=== PATIENT | male | born 1995 | race Caucasian/White ===

== ENCOUNTER 2023-06-26 02:12 | Emergency (ER) | payer MEDICAID ==
[~2023-06-26] VITALS: Ht 170.2 cm; Wt 90.9 kg
[2023-06-26 02:22] VITALS: TEMP 98
[2023-06-26 03:15] LABS: PH,URINE DRUG SCREEN 5.5 (5.0-8.0)
[2023-06-26 03:20] LABS: AMPHET/METH SCREEN,URINE NEGATIVE (NEGATIVE); BARBITURATE SCREEN, URINE NEGATIVE (NEGATIVE); BENZODIAZEPINES SCREEN,URINE NEGATIVE (NEGATIVE); CANNABINOID SCREEN,URINE NEGATIVE (NEGATIVE); COCAINE SCREEN,URINE NEGATIVE (NEGATIVE); METHADONE SCREEN, URINE NEGATIVE (NEGATIVE); OPIATE SCREEN,URINE NEGATIVE (NEGATIVE); PHENCYCLIDINE SCREEN,URINE NEGATIVE (NEGATIVE)
[2023-06-26] MEDS ORDERED: HALOPERIDOL 5 MG TABLET PO ONE (03:30)
[2023-06-26 03:50] LABS: ALCOHOL, URINE DRUG SCREEN NEGATIVE (NEGATIVE)
[2023-06-26] MEDS ORDERED: HALO5TAB23 PO (03:51)
[2023-06-26 03:52] VITALS: BP 118/70; PULSE 82; RESP 16
== END 2023-06-26 04:08 | disposition home or self-care (01) ==
LOC: EMS 02:16
DX: F25.9 Schizoaffective disorder, unspecified (principal); F31.9 Bipolar disorder, unspecified; Z98.890 Other specified postprocedural states
CPT/HCPCS: 80307; 99283